=== PATIENT | female | born 1985 | race African-American/Black ===

== ENCOUNTER 2025-01-06 10:35 | Emergency (ER) | payer SELFPAY ==
[2025-01-06] MEDS: NEOSPORIN OINT 0.9 GM PKT TOP ONE (11:51)
[2025-01-06 11:57] VITALS: BP 132/72; TEMP 98; O2SAT 100
== END 2025-01-06 11:59 | disposition home or self-care (01) ==
LOC: M ED 10:35
DX: S01.111A Laceration without foreign body of right eyelid and periocular area, initial encounter (principal); Y92.9 Unspecified place or not applicable; Y93.9 Activity, unspecified; Y99.9 Unspecified external cause status; W22.09XA Striking against other stationary object, initial encounter